=== PATIENT | male | born 1945 | race Caucasian/White ===

== ENCOUNTER 2019-12-05 11:25 | Observation (INO) ==
[2019-12-05] MEDS ORDERED: 0.9 % Sodium Chloride 500 ML IVC ONE (11:32)
[2019-12-05] MEDS ORDERED: Ondansetron 4 MG/2 ML VIAL IVP ONE (11:32)
[2019-12-05 11:49] LABS: Basophils # 0.1 K/mcL (0.0-0.2); Basophils % 0.5 %; Eosinophils # 0.1 K/mcL (0.0-0.6); Eosinophils % 0.8 %; Hematocrit 44.9 % (37.5-50.1); Hemoglobin 15.4 g/dL (12.9-16.9); Immature Granulocytes % 0.6 % (0-4); Lymphocytes # 1.4 K/mcL (0.6-4.6); Lymphocytes % 13.7 %; Mean Corpuscular HGB Conc 34.3 g/dL (31.6-35.5); Mean Corpuscular Hemoglobin 33.8 pg (28.0-33.3); Mean Corpuscular Volume 98.5 fL (83.0-100.0); Monocytes # 0.8 K/mcL (0.0-1.3); Monocytes % 7.8 %; Neutrophils # 7.8 K/mcL (1.6-8.9); Platelet Count 240 K/mcL (140-400); Red Blood Count 4.56 M/mcL (4.19-5.50); Red Cell Distribution Width 13.7 % (11.5-14.5); Segmented Neutrophils % 76.6 %; White Blood Count 10.2 K/mcL (4.3-11.1)
[2019-12-05 12:07] LABS: Alanine Aminotransferase 17 Units/L (7-52); Albumin 4.7 g/dL (3.5-5.7); Albumin/Globulin Ratio 1.7 (1.1-2.2); Alkaline Phosphatase 60 Units/L (34-104); Amylase 64 Units/L (29-103); Aspartate Amino Transferase 17 Units/L (13-39); BUN/Creatinine Ratio 10 (6-26); Bilirubin,Direct 0.1 mg/dL (0.0-0.2); Bilirubin,Indirect 0.7 mg/dL (0.0-1.0); Bilirubin,Total 0.8 mg/dL (0.3-1.0); Blood Urea Nitrogen 17 mg/dL (8-23); Calcium 9.9 mg/dL (8.6-10.3); Carbon Dioxide 26 mEq/L (23-29); Chloride 106 mEq/L (98-107); Globulin 2.8 g/dL (2.4-3.5); Glucose 102 mg/dL (70-105); Lipase 19 Units/L (11-82); Osmolality,Calculated 300 (280-300); Potassium 4.1 mEq/L (3.5-5.1); Sodium 144 mEq/L (136-145); Total Protein 7.5 g/dL (6.4-8.9); eGFR For African Americans 50 (> 60); eGFR For Non-African Americans 41 (> 60)
[2019-12-05 12:10] LABS: Troponin I < 0.03 ng/mL (< 0.04)
[2019-12-05 12:24] LABS: Activated Partial Thrombo Time 28.6 Seconds (26.0-36.0); Prothrombin Time 11.2 Seconds (9.4-12.1)
[2019-12-05] MEDS ORDERED: *HR* Promethazine 25 MG/ML VIAL IVP ONE (12:51)
[2019-12-05] MEDS: 0.9 % Sodium Chloride 1,000 ML IVC SCH ×2 (13:08→22:00)
[2019-12-05] MEDS ORDERED: MOM Conc 10 ML UD.LIQ PO PRN (13:33)
[2019-12-05] MEDS ORDERED: Mag Hydrox/Al Hydrox/Simeth 30 ML UDC PO PRN (13:33)
[2019-12-05] MEDS ORDERED: Ondansetron 4 MG/2 ML VIAL IVP PRN (13:33)
[2019-12-05] MEDS ORDERED: Naloxone 0.4 MG/ML INJ IVP PRN (13:33)
[2019-12-05] MEDS ORDERED: Acetaminophen 325 MG TABLET PO PRN (13:33)
[2019-12-05] MEDS ORDERED: Gabapentin 300 MG CAPSULE PO PRN (13:39)
[2019-12-05] MEDS ORDERED: Perflutren Lipid Microsphere 1.3 ML in 0.9 % Sodium Chloride 8.7 ML IVP PRN (14:57)
[2019-12-05 15:02] LABS: Bilirubin,Urine Negative (Negative); Blood,Urine Negative (Negative); Clarity,Urine Clear (Clear); Color,Urine Yellow (Yellow); Glucose,Urine (UA) Normal (Normal); Ketones,Urine Negative (Negative); Leukocyte Esterase,Urine Negative (Negative); Nitrite,Urine Negative (Negative); PH,Urine 5.5 pH Units (5.0-8.0); Protein,Urine Trace mg/dL (Neg-Trace); Urobilinogen,Urine Normal (Normal)
[2019-12-06 00:49] LABS: Basophils % 0.5 %; Eosinophils # 0.2 K/mcL (0.0-0.6); Eosinophils % 2.2 %; Hematocrit 37.8 % (37.5-50.1); Hemoglobin 12.7 g/dL (12.9-16.9); Immature Granulocytes % 0.6 % (0-4); Lymphocytes # 2.1 K/mcL (0.6-4.6); Lymphocytes % 25.2 %; Mean Corpuscular HGB Conc 33.6 g/dL (31.6-35.5); Mean Corpuscular Hemoglobin 33.5 pg (28.0-33.3); Mean Corpuscular Volume 99.7 fL (83.0-100.0); Mean Platelet Volume 11.4 fL (9.4-12.4); Monocytes # 0.9 K/mcL (0.0-1.3); Monocytes % 10.6 %; Neutrophils # 5.2 K/mcL (1.6-8.9); Platelet Count 209 K/mcL (140-400); Red Blood Count 3.79 M/mcL (4.19-5.50); Red Cell Distribution Width 13.9 % (11.5-14.5); Segmented Neutrophils % 60.9 %; White Blood Count 8.5 K/mcL (4.3-11.1)
[2019-12-06 01:10] LABS: Calcium 8.5 mg/dL (8.6-10.3); Potassium 4.1 mEq/L (3.5-5.1)
[2019-12-06] MEDS: 0.9 % Sodium Chloride 1,000 ML IVC SCH ×2 (05:54→14:47)
[2019-12-06] MEDS ORDERED: Aspirin Enteric Coated 81 MG Tablet PO SCH (09:00)
[2019-12-06] MEDS ORDERED: amLODIPine 5 MG TABLET PO SCH (09:00)
[2019-12-06] MEDS ORDERED: Folic Acid 1 MG TABLET PO SCH (09:00)
[2019-12-06 14:54] VITALS: BP 129/66
== END 2019-12-06 17:35 | disposition home or self-care (01) ==
LOC: INPPIK 11:25 → EMEROOPIK 11:25 → INPPIK 14:18
PROVIDERS: ADMIT Family Medicine; ATTEND Family Medicine